=== PATIENT | female | born 1955 | race Caucasian/White ===

== ENCOUNTER 2017-12-17 12:28 | Outpatient (CLI) | payer BC, SELFPAY ==
--- NOTE | 2017-12-17 12:23 | DI.RAD_ITS ---
SYMPTOM/DIAGNOSIS: LEFT KNEE PAIN, M25.562 LEFT KNEE: Three views. There is mild periarticular spurring in the medial and lateral femoral tibial joint spaces. The joint spaces are otherwise well maintained. The bones are intact and normally mineralized. The soft tissues are unremarkable. IMPRESSION: Mild degenerative changes of the left knee.
[2017-12-17 13:45] LABS: ALT 41 U/L (12-78); AST 25 U/L (15-37); Alkaline Phosphatase 111 U/L (46-116); Anion Gap 11.2 mmol/L (3-11); BUN 14 mg/dL (7-18); Bilirubin, Total 0.8 mg/dL (0.2-1.0); CO2 25.8 mmol/L (21.0-32.0); Calcium 10.1 mg/dL (8.5-10.1); Chloride 101 mmol/L (98-107); GGT 105 U/L (5-55); Glucose 80 mg/dL (70-100); Potassium 4.4 mmol/L (3.5-5.1); Sodium 138 mmol/L (136-145); Total Protein 7.2 g/dL (6.4-8.2)
== END 2017-12-17 12:48 ==
PROVIDERS: PCP Family Medicine; Visit Provider Family Medicine
DX: R74.0 Nonspecific elevation of levels of transaminase and lactic acid dehydrogenase [LDH] (principal); I10 Essential (primary) hypertension; M25.562 Pain in left knee; M17.12 Unilateral primary osteoarthritis, left knee
CPT/HCPCS: 36415; 73562; 80053; 82977

== ENCOUNTER 2017-12-25 00:52 | Outpatient (CLI) | payer BC, SELFPAY ==
--- NOTE | 2017-12-25 12:30 | DI.MAMMO_ITS ---
SYMPTOMS/DIAGNOSIS: SCREENING MAMMOGRAM: Mammograms were interpreted according to the usual protocol including computer analysis with CAD system, tomosynthesis and C view imaging. The breasts are of moderate density with fairly symmetrical distribution of fibroglandular tissue. There are well-circumscribed intrapulmonary nodules seen bilaterally, the largest in the right breast measuring about 11 mm in diameter. These appear stable in comparison with previous examinations including November 2016. Biopsy clip is noted in the upper outer quadrant of the left breast. No new mass or clumped microcalcification is seen on either side. CONCLUSION: No specific evidence of malignancy at this time. Routine screening examinations are suggested at yearly intervals in this age group according to the ACS/ACR guidelines. Category 1, breast density category B. MQSA ASSESSMENT OF FINDINGS: Negative. Category 1. Patient will receive a letter notifying them of these results. BI-RADS category B. There are scattered areas of fibroglandular density.
== END 2017-12-25 01:12 ==
PROVIDERS: PCP Family Medicine; Visit Provider Family Medicine
DX: Z12.31 Encounter for screening mammogram for malignant neoplasm of breast (principal)
CPT/HCPCS: 77063; 77067

== ENCOUNTER 2018-02-27 13:40 | Outpatient (CLI) | payer OTHER, SELFPAY ==
--- NOTE | 2018-02-27 13:00 | DI.RAD_ITS ---
SYMPTOM/DIAGNOSIS: M54.16, THORACIC AND LOW BACK PAIN, OSTEOPENIA DORSAL SPINE: Generalized osteoporosis is demonstrated. There are mild to moderate degenerative changes involving the dorsal spine with no evidence of gross disc space narrowing. Note is made of what appears to represent an old superior endplate compression fracture of T 12. The vertebral bodies and posterior elements are intact. The paravertebral soft tissues are unremarkable. Note is made of ectasia of the thoracic aorta. There is some deviation of the trachea to the right side. The possibility of an aneurysm could not be excluded and further assessment with chest CT is suggested. In addition there is a very large, ovoid calcification partially visualized in the right upper quadrant consistent with cholelithiasis. IMPRESSION: Old compression fracture of T 12. Mild to moderate degenerative changes involving the dorsal spine. Question status of the aorta regarding the possibility of an aneurysm. Further evaluation with CT is suggested. LUMBOSACRAL SPINE: Generalized osteoporosis is demonstrated. There is an apparent old superior endplate compression fracture of T 12. The vertebral bodies are otherwise intact. Disc narrowing is identified at L 2-3 and is also noted at T 10-11 and T 11-12 where bony hypertrophic changes are also evident. There is a minimal anterior listhesis of L 4 and L 5 and there are moderately severe facet joint degenerative changes without evidence of spondylosis or spondylolisthesis. The pedicle, spinous and transverse processes are intact. The sacrum and sacroiliac joints are unremarkable. SUMMARY: Old compression fracture of T 12. Degenerative changes throughout the lumbosacral spine as described above. In addition to the above, a large layered, ovoid calcification in the right upper quadrant would be consistent with a gallstone which could measure up to 4+ cm. in maximal diameter.
== END 2018-02-27 14:00 ==
PROVIDERS: PCP Family Medicine; Visit Provider Family Medicine
DX: M54.5 Low back pain (principal); M54.6 Pain in thoracic spine; M47.815 Spondylosis without myelopathy or radiculopathy, thoracolumbar region; M81.0 Age-related osteoporosis without current pathological fracture; M48.54XD Collapsed vertebra, not elsewhere classified, thoracic region, subsequent encounter for fracture with routine healing
CPT/HCPCS: 72072; 72110

== ENCOUNTER 2018-03-06 05:21 | Outpatient (CLI) | payer OTHER, SELFPAY ==
--- NOTE | 2018-03-06 12:52 | DI.US_ITS ---
SYMPTOMS/DIAGNOSIS: CHOLELITHIASIS WITHOUT OBSTRUCTION, K80.20, AAA, I71.4, ENLARGED AORTA, I77.89, ? AAA AND GALLSTONE ABDOMINAL ULTRASOUND: The visualized liver parenchyma is normal in appearance. There is cholelithiasis with multiple large gallstones. No gallbladder wall thickening or pericholecystic fluid collection seen. There is no evidence of a renal mass or hydronephrosis. Both kidneys contain tiny echogenic foci, which could represent nonobstructing renal calculi. The pancreas is unremarkable in appearance as visualized. Tail is not well seen. Abdominal aorta is of normal diameter, as is the IVC. CONCLUSION: Cholelithiasis. Question bilateral tiny nonobstructing renal calculi.
== END 2018-03-06 05:41 ==
PROVIDERS: PCP Family Medicine; Visit Provider Family Medicine
DX: K80.20 Calculus of gallbladder without cholecystitis without obstruction (principal); I71.4 Abdominal aortic aneurysm, without rupture; I77.89 Other specified disorders of arteries and arterioles
CPT/HCPCS: 76700

== ENCOUNTER 2018-12-26 03:19 | Outpatient (CLI) | payer OTHER, SELFPAY ==
[2018-12-26 12:30] LABS: ALT 43 U/L (14-59); AST 19 U/L (15-37); Alkaline Phosphatase 109 U/L (46-116); Anion Gap 8.8 mmol/L (3-11); BUN 12 mg/dL (7-18); Bilirubin, Total 0.7 mg/dL (0.2-1.0); CO2 27.2 mmol/L (21.0-32.0); Calculated LDL 133 mg/dL; Chloride 104 mmol/L (98-107); Cholesterol 214 mg/dL (<200); GGT 101 U/L (5-55); Glucose 89 mg/dL (74-106); HDL Cholesterol 63 mg/dL (40-60); Potassium 4.6 mmol/L (3.5-5.1); Sodium 140 mmol/L (136-145); Total Protein 7.3 g/dL (6.4-8.2); Triglyceride 90 mg/dL (<150)
== END 2018-12-26 03:39 ==
PROVIDERS: PCP Family Medicine; Visit Provider Family Medicine
DX: Z00.00 Encounter for general adult medical examination without abnormal findings (principal); I10 Essential (primary) hypertension
CPT/HCPCS: 36415; 80053; 80061; 82977

== ENCOUNTER 2019-07-24 02:58 | Outpatient (CLI) | payer OTHER, SELFPAY ==
--- NOTE | 2019-07-24 10:15 | DI.MAMMO_ITS ---
EXAM: MAMMO SCREENING CLINICAL HISTORY: screening, Z12.39 TECHNIQUE: Mammograms were interpreted according to the usual protocol including computer analysis w [employer] CAD system, tomosynthesis and C-view imaging. COMPARISON: 2009 through 2017 FINDINGS: The breasts are composed of mainly fatty density , Breast Density category A. No suspicious masses or suspicious microcalcifications are seen. A biopsy marker clip is again noted in a small nodule in the upper outer quadrant of the left breast. There are stable nodules in both breasts. No skin thickening or abnormal axillary lymph nodes are seen. There has been no significant change from prior exams. IMPRESSION: BI-RADS Category 1, negative. Yearly screening mammography is recommended. Breast Density - Category A - Almost entirely fatty
== END 2019-07-24 03:18 ==
PROVIDERS: PCP Family Medicine; Visit Provider Family Medicine
DX: Z12.31 Encounter for screening mammogram for malignant neoplasm of breast (principal)
CPT/HCPCS: 77063; 77067

== ENCOUNTER 2020-03-18 01:35 | Outpatient (CLI) | payer OTHER, SELFPAY ==
--- NOTE | 2020-03-18 07:45 | DI.DEXA_ITS ---
EXAM: XR DEXA BONE DENSITY W/WO SENDY CLINICAL HISTORY: osteoporosis,m81.0,m85.80,osteopenia TECHNIQUE: HoloIntellikine Horizon C densitometer. Analysis of the spine, left hip and right forearm. COMPARISON: Comparison with 2004 and 2007 FINDINGS: The lateral view of the thoracic and lumbar spine shows a mild T12 compression fracture. This is see n on lumbar spine plain films of 27 February 2018. Appears unchanged. No additional compression frac tures are visible. The bone mineral density measurements of the lumbar spine correspond to a total T-score of -2.6, in t he osteoporotic range. This represents a 16.4 percent decrease when compared with 2007 and a 21.6 pe rcent decrease when compared with 2004. The bone mineral density measurements of the left hip correspond to a total T-score of -2.7 and a fem oral neck T-score of -2.4, in the osteoporotic range. The total bone mineral density is decreased 18 .7 percent when compared with 2007 and 24.0 percent when compared with 2004. The right forearm was not analyzed on the previous exams. The bone mineral density measurements of t he right forearm correspond to a total T-score of -2.3 and T-score of the distal 3rd of -2.7, consist ent with osteoporosis. IMPRESSION: Osteoporosis of the lumbar spine, left hip and right forearm. There has been significant decrease in bone density when compared with 2004 and 2007.
== END 2020-03-18 01:36 ==
LOC: DI 01:36
PROVIDERS: PCP Family Medicine; Visit Provider Family Medicine
DX: M81.0 Age-related osteoporosis without current pathological fracture (principal); M85.88 Other specified disorders of bone density and structure, other site
CPT/HCPCS: 77080

== ENCOUNTER 2020-03-18 02:52 | Outpatient (CLI) | payer OTHER, SELFPAY ==
[2020-03-18 13:52] LABS: ALT 42 U/L (14-59); AST 25 U/L (15-37); Albumin 4.1 g/dL (3.4-5.0); Alkaline Phosphatase 124 U/L (46-116); Anion Gap 9.2 mmol/L (3-11); BUN 12 mg/dL (7-18); Bilirubin, Total 0.8 mg/dL (0.2-1.0); CO2 26.8 mmol/L (21.0-32.0); CREATININE 0.7 mg/dL (0.55-1.02); Calcium 10.3 mg/dL (8.5-10.1); Calculated LDL 143 mg/dL (<100); Chloride 103 mmol/L (98-107); Cholesterol 233 mg/dL (<200); GGT 110 U/L (5-55); Glucose 91 mg/dL (74-106); HDL Cholesterol 75 mg/dL (40-60); Potassium 4.3 mmol/L (3.5-5.1); Sodium 139 mmol/L (136-145); Total Protein 7.5 g/dL (6.4-8.2); Triglyceride 78 mg/dL (<150)
[2020-03-18 14:14] LABS: Vitamin D 25 Total 51.6 ng/ml (30-100)
== END 2020-03-18 02:53 | disposition home or self-care (01) ==
LOC: LBO 02:52
PROVIDERS: PCP Family Medicine; Visit Provider Family Medicine
DX: I10 Essential (primary) hypertension (principal); K76.0 Fatty (change of) liver, not elsewhere classified; R74.01 Elevation of levels of liver transaminase levels; M81.0 Age-related osteoporosis without current pathological fracture
CPT/HCPCS: 36415; 80053; 80061; 82306; 82977

== ENCOUNTER 2020-07-22 15:23 | Emergency (ER) | payer OTHER, SELFPAY ==
[2020-07-22 15:24] VITALS: BP 126/81; PULSE 86; RESP 18; TEMP 36.4; O2SAT 100
--- NOTE | 2020-07-22 15:29 | W.ED.GENAD ---
Discharge Plan Disposition Patient Disposition: HOME Condition: Good Discharge Details Clinical Impression: Ankle strain, Contusion of left elbow, initial encounter Primary Care Provider: Roxana Mark ED Provider: Eric Bejarano Home Meds and New Rx's Prescriptions: Continued melatonin 3 mg tablet 3 mg PO HS PRNRF: 0 Gaviscon 1 EACH tablet,chewable 1 ea PO PRN RF: 0 Alive 50+ 1 tab PO DAILY RF: 0 loratadine 10 MG tablet 10 mg PO PRN PRNRF: 0 calcium carbonate-vitamin D3 [Caltrate with Vitamin D3] 1 EACH tablet 1 ea PO DAILY RF: 0 lisinopril 10 mg tablet 10 mg PO DAILY Qty: 90 RF: 4 ibuprofen 400 MG tablet 400 mg PO Q6H PRN PRNRF: 0 Discharge Instructions Instructions: Ankle Sprain (ED), Contusion in Adults (ED) Additional Instructions: X-ray of elbow and ankle read by radiology is unremarkable. Wear walking boot and use sling as needed, advance activity as tolerated. Be sure to do passive range of motion of your left shoulder at least 4 times a day to avoid a frozen shoulder. Rest, elevate, cool compresses every 2 hours for 20 minutes. Please watch for new or worsening symptoms and return to the ER for any concerns. Take eciz-gqs-[id number] Tylenol and/or Motrin as directed and as needed for pain. I am giving you the name and number of our local orthopedic team, I recommend contacting them next week if you are not doing much better with conservative therapy. Referrals: Sterling Breen MD [ [facility] STAFF PHYSICIAN] - Discharge Data Discharge Date/Time-TO BE ENTERED AT DEPARTURE: 07/22/20 17:44 Medical Decision Making <MAURISIO Potts - Last Filed: 07/23/20 08:58> Patient with no significant visible evidence of trauma, tenderness to right ankle and left elbow, pending x-rays at this time to Eric Bejarano PA-C at 1600 pending disposition <MAURISIO Perez - Last Filed: 07/22/20 18:36> I assumed care of this 65-year-old female from my colleague MAURISIO Degroot, please see her initial HPI and examination. At time of signout awaiting left elbow and right ankle x-ray. Discussed x-ray findings, negative, with patient. Discussed options for treatment. Patient would like a sling for her left elbow, sling applied. Patient would like a tall boot for her right ankle as she is not able to use crutches or a walker with her elbow injury. Tall boot was applied. Neuro, vascular, tendon intact. Patient was ambulatory, slowly but steadily. We discussed the importance of passive range of motion of her left shoulder to avoid a frozen shoulder. Conservative therapy of resting, elevating, cool compresses, moty-gxu-apglflz Tylenol and/or Motrin. Advancing activity as tolerated. I will give her the name and number of our local orthopedic team so that she is not improving with conservative therapy she can follow-up appropriately. Patient has no questions or concerns upon discharge. Imaging Data Radiologic Study: Attestation: I personally reviewed and interpreted this imaging study as follows: Imaging: X-Ray Radiologist's impression: [facility] Preliminary Radiology Report Call: [phone] assistance Online chat: [email or web address] Patient Name: TRACEY CLAYTON Institution Name: [place] [address] Study Type: XR ANKLE COMPLETE MIN 3 VIEWS Ordered As: XR RIGHT ANKLE COMPLETE Date of Dictation: 22 Jul 2020 EDT Date of Exam: 22 Jul 2020 EDT Account Number: Patient : 1955 Patient Location: er It Technical Architect: Referring Physician: Zulma DEGROOT This interpretation is based upon the receipt of 3 images. MARKETING INTELLIGENCE ANALYST (QA) DISCREPANCY? If there is a discrepancy between the preliminary and final interpretation, please notify [employer] via [email or web address]. If you do not have access to our QA portal, call our QA team at [phone] CONFIDENTIALITY STATEMENT This report is intended only for the use of the referring physician, and only in accordance with law, If you received this in error, call [phone] Page 1 of 1 PROCEDURE INFORMATION: Exam: XR Right Ankle Exam date and time: 07/22/2020 3:38 PM Age: 65 years old Clinical indication: Pain; Ankle; Right TECHNIQUE: Imaging protocol: XR Right ankle. Views: 3 or more views. COMPARISON: No relevant prior studies available. FINDINGS: Bones/joints: There is no evidence of acute fracture. There is no evidence of joint malalignment or dislocation. Soft tissues: There are no soft tissue masses or fluid collections. IMPRESSION: 1. No evidence of acute fracture. 2. No evidence of acute dislocation. Thank you for allowing us to participate in the care of your patient. Dictated and Authenticated by: Lul Gonzalez DO 07/22/2020 4:19 PM Eastern Time ([place] & [place]) Radiologic Study #2: Attestation: I personally reviewed and interpreted this imaging study as follows: Imaging: X-Ray Radiologist's impression: [facility] Preliminary Radiology Report Call: [phone] assistance Online chat: [email or web address] Patient Name: TRACEY CLAYTON Institution Name: [place] [address] Study Type: XR ELBOW COMPLETE MIN OF 3 VIEWS Ordered As: XR LEFT ELBOW COMPLETE Date of Dictation: 22 Jul 2020 EDT Date of Exam: 22 Jul 2020 EDT Account Number: Patient : 1955 Patient Location: er It Technical Architect: Referring Physician: Zulma DEGROOT This interpretation is based upon the receipt of 3 images. MARKETING INTELLIGENCE ANALYST (QA) DISCREPANCY? If there is a discrepancy between the preliminary and final interpretation, please notify [employer] via [email or web address]. If you do not have access to our QA portal, call our QA team at [phone] CONFIDENTIALITY STATEMENT This report is intended only for the use of the referring physician, and only in accordance with law, If you received this in error, call [phone] Page 1 of 1 PROCEDURE INFORMATION: Exam: XR Left Elbow Exam date and time: 07/22/2020 3:38 PM Age: 65 years old Clinical indication: Pain; Elbow; Left TECHNIQUE: Imaging protocol: XR Left elbow. Views: 3 or more views. COMPARISON: No relevant prior studies available. FINDINGS: Bones/joints: There is no evidence of acute fracture. There is no evidence of joint malalignment or dislocation. Joint effusion is present. Soft tissues: There are no soft tissue masses or fluid collections. IMPRESSION: 1. No evidence of acute fracture. 2. No evidence of acute dislocation. 3. Joint effusion is present. Thank you for allowing us to participate in the care of your patient. Dictated and Authenticated by: Lul Gonzalez DO 07/22/2020 4:19 PM Eastern Time ([place] & [place]) HPI <AMURISIO Potts - Last Filed: 07/23/20 08:58> General Mode of arrival: ambulatory. Date/Time Provider Initiated Documentation: 07/22/20 15:25. Limitations to Documentation: no limitations. Information obtained by: patient. HPI Narrative: This 59-year-old female presents with reports of right ankle pain and left elbow pain status post fall. Patient reportedly stepped into a definite twisted her right ankle landing on her left side. The fall of her ankle in nature. She denies any additional injuries. She denies any anticoagulation history. She denies any head injury, chest pain, shortness of breath, abdominal pain. She denies any dizziness or weakness. Related Data Home Medications Medication Instructions Recorded Confirmed Gaviscon 1 ea PO PRN tab.chew 11/27/12 07/22/20 Alive 50+ 1 tab PO DAILY 06/27/16 07/22/20 ibuprofen 400 mg PO Q6H PRN PRN tab 10/14/16 07/22/20 loratadine 10 mg PO PRN PRN 10/19/16 07/22/20 calcium carbonate-vitamin D3 1 ea PO DAILY 11/27/16 07/22/20 [Caltrate with Vitamin D3] melatonin 3 mg tablet 3 mg PO HS PRN 12/23/19 07/22/20 lisinopril 10 mg tablet 10 mg PO DAILY #90 tab 03/12/20 07/22/20 Previous Rx's Medication Instructions Recorded ibuprofen 400 mg PO Q6H PRN PRN tab 10/14/16 lisinopril 10 mg tablet 10 mg PO DAILY #90 tab 03/12/20 Allergies Allergy/AdvReac Type Severity Reaction Status Date / Time No Known Allergies Allergy Unverified 04/22/20 11:37 Review of Systems <MAURISIO Potts - Last Filed: 07/23/20 08:58> Narrative: Review of systems obtained x7 aside from where indicated in HPI PFSH <MAURISIO Potts - Last Filed: 07/23/20 08:58> Medical History (Updated 07/22/20 @ 16:05 by MAURISIO Potts) Cholelithiasis without obstruction Compression fracture of body of thoracic vertebra (10/13/16) Elev transaminase/LDH R lobe hemangioma on US; neg Hep series; elevated GGT; high alcohol intake Esophageal reflux Essential hypertension Essential hypertension Fatty liver Fatty liver declines F/U Gastroesophageal reflux disease with esophagitis GERD (gastroesophageal reflux disease) Osteopenia Dexa w/T-scores -1.6; -1.2; -0.7 Polyp of colon (01/04/06) tubulovillious adenoma at 15cm; declined local MI, declined [facility] [place] [place] both in 2008,2009 Polyp of colon, adenomatous Rosacea Seasonal allergies (06/23/14) Surgical History (Updated 03/07/17 @ 10:06 by Gemma Sommers) Colonoscopy - IV Sedation 2009 Colonoscopy - MAC (03/06/17) Fracture, Open Treatment (~01/2004) [facility]; LEFT WRIST Hysterectomy, Laproscopic (~1998) FIBROIDS Family History (Updated 12/24/19 @ 12:39 by Jeronimo Pichardo) Mother , AGE 70 Essential hypertension Ovarian cancer Father Essential hypertension Sister Essential hypertension Ulcerative colitis Sister Multiple sclerosis Sister Essential hypertension Brother No problems noted. Brother No problems noted. Maternal Grandfather , AGE 80 Pancreatic cancer Alcohol abuse Paternal Grandfather , AGE 83 Depression Paternal Grandmother , AGE 90 Lung disease Maternal Grandmother , age 80+ Heart disease CHF (congestive heart failure) Essential hypertension Other Heart attack Social History (Updated 12/24/19 @ 12:36 by Jeronimo Pichardo) Smoking/Tobacco Use Status: Never Second Hand Exposure: Yes Smoking risk assessment performed?: Yes Alcohol Intake: current Alcohol Intake frequency: 3 or more drinks per day Alcohol type: wine Drug use: Never Substance use type: does not use Caregiver/Support person: No Household members: spouse Housing: house Communication Needs: None Do you need help understanding health information?: Never Pets and animals: Yes Pets and animals: cat(s) Sexually active: No Do you think of yourself as: straight/heterosexual Current gender identity: female What is your relationship status?: How often do you talk on the phone with friends or family?: twice per week How often do you get together with friends or relatives?: never How often do you attend scientology or hinduism services?: decline to answer Do you belong to any clubs or organized social groups?: no Panel score (0-1 are the most socially isolated patients): 1 What type of physical activity do you participate in: none and normal ROM and activity Duration: 45-60 minutes/day Frequency: 3-4 times per week Merly/Zoroastrian: Evangelical Special merly needs: No Seatbelt use: always Drive intox or ride w/intox full service vending driver: No Do you feel safe at home: Yes Do you feel safe in your relationship?: Yes Victim of physical abuse: No Victim of emotional abuse: No Victim of sexual abuse: No Would you like helpful sources: No Exam <MAURISIO Potts - Last Filed: 07/23/20 08:58> Const General: cooperative and no acute distress HENMT Head: normal to inspection Eyes Pupils: PERRL Neck Other: No midline tenderness Cardio Rate: regular rate Rhythm: regular rhythm GI Other: No abdominal tenderness or visible evidence of trauma Back/Spine/Pelvis Other: No midline tenderness Neuro Other: GCS 15, strength and sensation intact distally Extrem Other: Right lateral ankle tenderness, no medial tenderness, no tenderness to right knee or right foot, no tenderness to right hip Tenderness with palpation over left elbow, mild tenderness to left knee but complete range of motion without tenderness, no hip tenderness bilaterally Neurovascularly intact Sign Out <MAURISIO Potts - Last Filed: 07/23/20 08:58> Sign Out Data: Sign Out Comment: pending xray results interpretation and ambulatory trial Last updated by Zulma Degroot PA at 07/22/20 16:13
--- NOTE | 2020-07-22 15:30 | DI.RAD_ITS ---
Exam(s) XR ANKLE RT COMPLETE EXAM: XR ANKLE RT COMPLETE CLINICAL HISTORY: right ankle pain. TECHNIQUE: 2D digital imaging was performed. COMPARISON: No exams were available for comparison FINDINGS: BONES: No acute fracture is present. No bony destructive lesion is seen. JOINTS: The ankle mortise is normally aligned. SOFT TISSUE: Normal. IMPRESSION: Unremarkable radiographs of the right ankle. DATA REPOSITORY: RADIATION DOSE DELIVERED:
--- NOTE | 2020-07-22 15:30 | DI.RAD_ITS ---
Exam(s) XR ELBOW LT COMPLETE EXAM: XR ELBOW LT COMPLETE CLINICAL HISTORY: left elbow. TECHNIQUE: 2D digital imaging was performed. COMPARISON: No exams were available for comparison FINDINGS: BONES: No acute fracture is present. No bony destructive lesion is seen. JOINTS: The elbow is normally aligned. There is a large joint effusion. SOFT TISSUE: Normal. IMPRESSION: 1. No acute fracture or dislocation. 2. Large joint effusion. 3. Follow-up examination may be obtained for re-evaluation. DATA REPOSITORY: RADIATION DOSE DELIVERED:
[2020-07-22] MEDS: Acetaminophen 325 MG TAB (16:00)
--- NOTE | 2020-07-22 16:19 | DI.VRAD_ITS ---
PROCEDURE INFORMATION: Exam: XR Left Elbow Exam date and time: 07/22/2020 3:38 PM Age: 65 years old Clinical indication: Pain; Elbow; Left TECHNIQUE: Imaging protocol: XR Left elbow. Views: 3 or more views. COMPARISON: No relevant prior studies available. FINDINGS: Bones/joints: There is no evidence of acute fracture. There is no evidence of joint malalignment or dislocation. Joint effusion is present. Soft tissues: There are no soft tissue masses or fluid collections. IMPRESSION: 1. No evidence of acute fracture. 2. No evidence of acute dislocation. 3. Joint effusion is present. Dictated and Authenticated by: Lul Gonzalez MD. Ordering:DAVIDSON Maya MD
--- NOTE | 2020-07-22 16:20 | DI.VRAD_ITS ---
PROCEDURE INFORMATION: Exam: XR Right Ankle Exam date and time: 07/22/2020 3:38 PM Age: 65 years old Clinical indication: Pain; Ankle; Right TECHNIQUE: Imaging protocol: XR Right ankle. Views: 3 or more views. COMPARISON: No relevant prior studies available. FINDINGS: Bones/joints: There is no evidence of acute fracture. There is no evidence of joint malalignment or dislocation. Soft tissues: There are no soft tissue masses or fluid collections. IMPRESSION: 1. No evidence of acute fracture. 2. No evidence of acute dislocation. Dictated and Authenticated by: Lul Gonzalez MD. Ordering:DAVIDSON Maya MD
[2020-07-22 16:59] VITALS: BP 136/90; PULSE 91; RESP 18; TEMP 36.6; O2SAT 97
== END 2020-07-22 17:44 | disposition home or self-care (01) ==
LOC: ER 17:20
PROVIDERS: Emergency Provider Physician Assistant; PCP Family Medicine
DX: S96.811A Strain of other specified muscles and tendons at ankle and foot level, right foot, initial encounter (principal); S50.02XA Contusion of left elbow, initial encounter; W18.39XA Other fall on same level, initial encounter
CPT/HCPCS: 29515; 99284; 73080; 73610; 99283

== ENCOUNTER 2021-02-21 00:36 | Outpatient (CLI) | payer MEDICARE, SELFPAY ==
--- NOTE | 2021-02-21 06:45 | DI.MAMMO_ITS ---
Exam(s) MAMMO SCREENING EXAM: MAMMO SCREENING CLINICAL HISTORY: screening,z12.39 TECHNIQUE: Mammograms were interpreted according to the usual protocol including computer analysis w [employer] CAD system, tomosynthesis and C-view imaging. COMPARISON: 2011 through 2019 FINDINGS: The breasts are composed of mainly fatty density , Breast Density category A. No suspicious masses or suspicious microcalcifications are seen. Stable bilateral nodules. Biopsy m arker clip upper-outer quadrant left breast. No skin thickening or abnormal axillary lymph nodes are seen. There has been no significant change from prior exams. IMPRESSION: BI-RADS Category 2 - Benign findings. Yearly screening mammography is recommended. Breast Density - Category A, fatty density. A negative radiographic report should not delay biopsy if a dominant or clinically suspicious mass is present. Up to ten percent of cancers are not identified on mammography. A negative report may reinforce clinical impression. Adenosis and dense breasts may obscure an underlying neoplasm. False positive reports average 6 to 10%. Patient will receive a letter notifying them of these results.
== END 2021-02-21 00:56 ==
PROVIDERS: PCP Family Medicine; Visit Provider Family Medicine
DX: Z12.31 Encounter for screening mammogram for malignant neoplasm of breast (principal)
CPT/HCPCS: 77063; 77067

== ENCOUNTER 2021-07-21 03:49 | Outpatient (CLI) | payer MEDICARE, SELFPAY ==
[2021-07-21 15:22] LABS: ALT 32 U/L (14-59); AST 20 U/L (15-37); Albumin 3.9 g/dL (3.4-5.0); Alkaline Phosphatase 105 U/L (46-116); Anion Gap 8.7 mmol/L (3-11); BUN 10 mg/dL (7-18); Bilirubin, Total 0.6 mg/dL (0.2-1.0); CO2 26.3 mmol/L (21.0-32.0); CREATININE 0.7 mg/dL (0.55-1.02); Calcium 9.8 mg/dL (8.5-10.1); Chloride 105 mmol/L (98-107); Glucose 91 mg/dL (74-106); Potassium 3.7 mmol/L (3.5-5.1); Sodium 140 mmol/L (136-145); Total Protein 7.7 g/dL (6.4-8.2)
== END 2021-07-21 03:50 | disposition home or self-care (01) ==
LOC: LBO 03:49
PROVIDERS: PCP Family Medicine; Visit Provider Family Medicine
DX: I10 Essential (primary) hypertension (principal)
CPT/HCPCS: 36415; 80053

== ENCOUNTER 2022-05-29 11:00 | Outpatient (CLI) | payer MEDICARE, SELFPAY ==
[2022-05-29 12:21] LABS: HCT 41.7 % (36.0-46.0); MCH 31.2 pg (27.0-33.0); MCHC 33.6 % (32.0-36.0); MCV 93 fL (80-95); MPV 9.6 fL (8.0-11.0); Platelet Count 342 10^3/uL (130-400); RBC 4.49 10^6/uL (3.93-5.22); RDW 11.8 % (11.7-14.6); RDW-SD 40.4 fL
[2022-05-29 13:02] LABS: ALT 41 U/L (14-59); AST 26 U/L (15-37); Albumin 3.9 g/dL (3.4-5.0); Alkaline Phosphatase 109 U/L (46-116); Anion Gap 5.3 mmol/L (3-11); BUN 14 mg/dL (7-18); Bilirubin, Total 0.5 mg/dL (0.2-1.0); CO2 27.7 mmol/L (21.0-32.0); CREATININE 0.8 mg/dL (0.55-1.02); Calcium 10.2 mg/dL (8.5-10.1); Chloride 103 mmol/L (98-107); Estimated GFR 80.21 (mL/min/1.73m2); GGT 81 U/L (5-55); Glucose 103 mg/dL (74-106); Potassium 3.9 mmol/L (3.5-5.1); Sodium 136 mmol/L (136-145); Total Protein 7.5 g/dL (6.4-8.2)
== END 2022-05-29 11:01 | disposition home or self-care (01) ==
LOC: LOS 11:00
PROVIDERS: PCP Family Medicine; Referring Provider Family Medicine; Visit Provider Family Medicine
DX: I10 Essential (primary) hypertension (principal); K57.90 Diverticulosis of intestine, part unspecified, without perforation or abscess without bleeding; F10.11 Alcohol abuse, in remission
CPT/HCPCS: 36415; 80053; 85027; 82977

== ENCOUNTER 2023-06-21 14:44 | Outpatient (CLI) | payer MEDICARE, SELFPAY ==
[2023-06-21 16:11] LABS: ALT 49 U/L (14-59); AST 25 U/L (15-37); Albumin 4.1 g/dL (3.4-5.0); Alkaline Phosphatase 109 U/L (46-116); Anion Gap 11.4 mmol/L (3-11); BUN 13 mg/dL (7-18); Bilirubin, Total 0.7 mg/dL (0.2-1.0); CO2 27.6 mmol/L (21.0-32.0); CREATININE 0.8 mg/dL (0.55-1.02); Calculated LDL 134 mg/dL (<100); Chloride 102 mmol/L (98-107); Cholesterol 235 mg/dL (<200); Estimated GFR 79.71 (mL/min/1.73m2); Glucose 86 mg/dL (74-106); HDL Cholesterol 74 mg/dL (40-60); Potassium 3.7 mmol/L (3.5-5.1); Sodium 141 mmol/L (136-145); Total Protein 7.8 g/dL (6.4-8.2); Triglyceride 136 mg/dL (<150)
== END 2023-06-21 14:45 | disposition home or self-care (01) ==
LOC: LBO 14:44
PROVIDERS: PCP Family Medicine; Visit Provider Family Medicine
DX: I10 Essential (primary) hypertension (principal)
CPT/HCPCS: 36415; 80053; 80061

== ENCOUNTER → 2023-06-27 04:01 | Outpatient (CLI) | payer MEDICARE, SELFPAY ==
--- NOTE | 2023-06-27 07:15 | DI.MAMMO_ITS ---
Exam(s) MAMMO SCREENING EXAM: MAMMO SCREENING CLINICAL HISTORY: screening,z12.39. TECHNIQUE: Bilateral full field digital CC and MLO mammographic images were obtained with 3D tomosyn thesis and utilizing computer aided detection (CAD). COMPARISON: Prior mammograms were reviewed. FINDINGS: There has been no significant change in the appearance and distribution of the fibroglandular tissue. There are no new findings in the immediate vicinity of the biopsy marker clip in the lateral aspect o f the left breast. There is stable benign-appearing bilateral well-defined nodules again noted. There are no new spiculated masses nor malignant appearing microcalcification groups. There is no significant architectural distortion nor skin thickening-retraction. IMPRESSION: Stable benign-appearing findings. No radiographic evidence of malignancy. BI-RADS Category 2 - Benign Findings Breast Density - Category A - Almost entirely fatty Breast density Category C or D implies that the patient has dense breast tissue. Dense breast tissue can make it harder to find cancer on a mammogram. Dense breast tissue is also associated with an incr eased risk of breast cancer. This information about the result of the mammogram report was provided to the patient to raise their awareness. Use this report when you speak with the patient about their risks for breast cancer, which includes their family history. At that time, you may recommend additional screening tests (Ultrasoun d or MRI) as these tests may add significant information. A negative radiographic report should not delay biopsy if a dominant or clinically suspicious mass is present. Up to ten percent of cancers are not identified on mammography. A negative report may reinforce clinical impression. Adenosis and dense breasts may obscure an underlying neoplasm. False positive reports average 6 to 10%. Patient will receive a letter notifying them of these results.
== END ==
PROVIDERS: PCP Family Medicine; Visit Provider Family Medicine
DX: Z12.31 Encounter for screening mammogram for malignant neoplasm of breast (principal)
CPT/HCPCS: 77063; 77067

== ENCOUNTER 2023-11-03 15:29 | Emergency (ER) | payer MEDICARE, SELFPAY ==
[2023-11-03 15:30] VITALS: BP 121/74; PULSE 80; RESP 18; TEMP 36.5; O2SAT 100
--- NOTE | 2023-11-03 15:30 | DI.RAD_ITS ---
Exam(s) XR ELBOW LT COMPLETE EXAM: XR ELBOW LT COMPLETE CLINICAL HISTORY: suspect dislocation vs fx. TECHNIQUE: 2D digital imaging was performed of the left elbow. Three images were obtained. AP, lat eral and oblique views were obtained. COMPARISON: CR,XR XR ELBOW LT COMPLETE from 07/22/2020 FINDINGS: BONES: There is an acute fracture through the proximal metaphysis of the left ulna. There is mild di splacement of the fracture noted. No bony destructive lesion is seen. JOINTS: The elbow is normally aligned. No joint effusion is seen. SOFT TISSUE: There is soft tissue swelling of the dorsum of the elbow. IMPRESSION: Mildly displaced fracture involving the proximal metaphysis of the left ulna with mild displacement a nd associated soft tissue swelling. DATA REPOSITORY: RADIATION DOSE DELIVERED:
--- OUTSIDE RECORDS SUMMARY | 2023-11-03 15:36 | XMS_ITS | Encounter Summary ---
Author Organization [facility] Address [facility] [place] [address] Care Team Providers Care Labor Relations Officer Name Role Phone Roxana Mark MD Primary Care Provider [phone] Encounter Details Date Type Department Care Team (Late st Contact Info) Description 09/20/2007 Orders [place] [address] Jeremias Aguirre MD [facility] [place] [address] Social History Tobacco Use Types Packs/Day Years Used Date Smoking Tobacco: Never Assessed Sex and Gender Information Value Date Recorded Sex Assigned at Not on file Gender Identity Not on file Sexual Orientation Not on file documented as of this encounter Plan of Treatment Not on file documented as of this encounter Procedures Procedure Name Priority Date/Time Associated Diagnosis Comments SURGICAL PATHOLOGY REPORT Routine 09/20/2007 12:31 PM EDT documented in this encounter Results * Surgical Pathology Report (09/20/2007 12:31 PM EDT) Surgical Pathology Report [id number] ? Location: 4T The signing pathologist has (i) examined the relevant preparation(s) for the specimen(s) and (ii) rendered or confirmed the diagnosis(es). . ?Pathology Surgical Pathology Final Report Clinical Information Specimen Submitted: A - Liver biopsy right lobe liver Clinical History: Elevated LFTs ? lat THOMAS Clinical Diagnosis: Elevated LFTs Gross Description Labeled/Fixative : ? Liver biopsy right lobe liver, formalin. Qty/Size/Weight: ?Four ricketts-brown needle core biopsies, ranging from ?0.6 x 0.1 cm to 1.6 x 0.1 cm. Sections/Process ing: ??(T1) ??aje/PPS Microscopic Description Slides reviewed, microscopic description not recorded. Diagnosis Liver, needle biopsy without significant change. The lobular architecture is preserved. Mild steatosis is noted, without significant hepatocyte ballooning or lobular inflammation. Rare clusters of ceroid laden macrophages in lobule and portal tracts, may suggest a mild degree of residual hepatitis. Iron stain is negative for iron deposition. Trichrome stain confirms H&E stain findings. CR-0 09/23/07 AAS 09/23/07 Verified by: ? Liam Junior MD ?Pathologist ?(Electronic Signature) The attending pathologist whose signature appears on this report has reviewed all diagnostic slides and has edited the gross and/or microscopic portion of the report in rendering the final pathologic diagnosis. SUDHIR PASTOR 09/20/2007 12:3 1 PM EDT Jeremias Aguirre MD PATHOLOGY/CYTOLOGY O VERNON SUDHIR PASTOR documented in this encounter Visit Diagnoses Not on filedocumented in this encounter Care Teams Labor Relations Officer Relationship Specialty Start Date End Date Roxana Mark MD [address] [place] [address] PCP - General 12/28/09 documented as of this encounter
--- OUTSIDE RECORDS SUMMARY | 2023-11-03 15:36 | XMS_ITS | Encounter Summary ---
Author Organization [facility] Address [address] [place] [address] Care Team Providers Care Special Agent Name Role Phone Unavailable Primary Care Provider Unavailabl e Encounter Details Date Type Department Care Team (Late st Contact Info) Description 09/03/2006 Results Only [facility] [address] [place] [address] Rao hO MD [address] [place] [id number] Social History Tobacco Use Types Packs/Day Years Used Date Smoking Tobacco: Never Assessed Sex and Gender Information Value Date Recorded Sex Assigned at Not on file Gender Identity Not on file Sexual Orientation Not on file documented as of this encounter Plan of Treatment Not on file documented as of this encounter Procedures Procedure Name Priority Date/Time Associated Diagnosis Comments SURGICAL PATHOLOGY Routine 09/03/2006 0:00 EDT documented in this encounter Results * SURGICAL PATHOLOGY (09/03/2006 0:00 EDT) Pathology Report: SURGICAL PATHOLOGY REPORT Reports generated via electronic interface contain original data; however they are lacking the format of the original report. Caution should be taken when reading/interpreti ng unformatted reports. Name: ? CLAIRE CARPENTER ? Accession #: ? [id number] ? : ? 1955 (Age: 51) ??F ? Collect Date: ? 09/03/2006 ? Location: ? [facility] ? Receive Date: ? 09/03/2006 ? Provider: RAO OH MD Copy to: ZOHAIB BAIG MD ? Final Pathologic Diagnosis: A. ?Rectum, polypectomy: 1. ?Tubulovillous adenoma. 2. ? No evidence of high grade dysplasia. B. ?Rectum, polyp stalk, biopsy: 1. ?Fragments of tubulovillous adenoma. 2. ? Resection margins negative for adenomatous changes. Document reviewed and electronically signed by: CHEYENNE LOPEZ MD Report ??Date: 09/06/2006 17:14 By the signature above, the attending physician certifies that he/she has personally conducted a gross and/or microscopic examination of the described specimens and rendered or confirmed the above diagnosis. Specimen(s) Received: A. ?1 cm polyp (#1) B. ? Stalk of #1 (#2) Clinical History: ? Screening colonoscopy Gross Description: ? Received in Hollande's fixative labelled Jayden and bx rectum 15 cm is a ricketts-pink 1.5 x 1.1 x 0.7 cm polypoid soft tissue. The specimen is serially sectioned and entirely submitted as (A1) and (A2). Received in Hollande's fixative labelled Jayden and polyp rectal 15 cm stalk is a 1.0 x 0.5 x 0.5 cm soft tissue. The specimen is longitudinally bisected and entirely submitted as (B). (Jhony Fall)/[facility] End of Report [facility] 09/03/2006 09/03/2006 7:5 2 EDT Rao Oh MD PATHOLOGY ORDERABLE S Performing Organization Address City/State/[facility] Co de Phone Number [facility] [address] [place] [address] documented in this encounter Visit Diagnoses Not on filedocumented in this encounter
--- OUTSIDE RECORDS SUMMARY | 2023-11-03 15:36 | XMS_ITS | Clinical Summary ---
Author Organization [facility] Address [address] [place] [address] Care Team Providers Care Matzo Forming Machine Operator Name Role Phone Roxana Mark MD Primary Care Provider Social History Tobacco Use Types Packs/Day Years Used Date Smoking Tobacco: Never Assessed Sex and Gender Information Value Date Recorded Sex Assigned at Not on file Gender Identity Not on file Sexual Orientation Not on file Plan of Treatment Health Maintenance Due Date Last Done Comments Hepatitis C Screen 1955 RSV Immunization ( o r 60+ Years) (1 - 1-dose 60+ series) 2014 Fall Risk Screening 05/26/2019 COVID-19 Vaccine (2022-24 season) 2022 Care Teams Matzo Forming Machine Operator Relationship Specialty Start Date End Date Roxana Mark MD [address] [place] [phone] PCP - General 05/17/11
--- OUTSIDE RECORDS SUMMARY | 2023-11-03 15:36 | XMS_ITS | Referral Summary ---
Author Organization [facility] Address [address] [place] [address] Care Team Providers Care Cutter Machine Name Role Phone Roxana Mark MD Primary Care Provider [phone] Social History Tobacco Use Types Packs/Day Years Used Date Smoking Tobacco: Never Assessed Sex and Gender Information Value Date Recorded Sex Assigned at Not on file Gender Identity Not on file Sexual Orientation Not on file Plan of Treatment Not on file Care Teams Cutter Machine Relationship Specialty Start Date End Date Roxana Mark MD [address] [place] [address] [address] [place] [id number] PCP - General 05/17/11
--- OUTSIDE RECORDS SUMMARY | 2023-11-03 15:36 | XMS_ITS | Clinical Summary ---
Author Organization [facility] Address [facility] [place] [address] Care Team Providers Care Stone Product Fabricator Name Role Phone Roxana Mark MD Primary Care Provider [phone] Allergies No known active allergies Medications Medication Sig Dispensed Refills Start Date End Date Status multivitamin (THERAGRAN) tablet 09/20/2007 Active hydrochlorothiazide (HYDRODIURIL) 25 mg tablet 09/20/2007 Active ibuprofen (ADVIL) 200 mg tablet 09/20/2007 Active MG TRISILICATE/ALH/NAHCO3/AA (GAVISCON ORAL) 09/20/2007 Active MULTIVITS W-FE,OTHER MIN (CENTRUM ORAL) 09/20/2007 Active Social History Tobacco Use Types Packs/Day Years Used Date Smoking Tobacco: Never Assessed Sex and Gender Information Value Date Recorded Sex Assigned at Not on file Gender Identity Not on file Sexual Orientation Not on file Plan of Treatment Health Maintenance Due Date Last Done Comments CT Colonography 1955 Colonoscopy 1955 Colorectal Cancer Screening 1955 FIT DNA 1955 FIT 1955 Sigmoidoscopy (10 year) with FIT yearly 1955 Sigmoidoscopy 1955 Hepatitis C Screening 1972 Tetanus/Diphtheria/Pertussis Vaccines (1 - Tdap) 05/25 Breast Cancer Share Decision Needed 1994 Breast Cancer screening 1994 Zoster vaccine (1 of 2) 2004 Advance Directive 2009 Bone Density Scan 05/26/2019 Pneumoccocal Vaccine: 65+ (1 of 1 - PCV) 05/26/2019 Covid-19 Vaccine (1 - season) 2023 Influenza (Flu) vaccine (1 o f 1 - Influenza standard series) 10/07/2023 Care Teams Stone Product Fabricator Relationship Specialty Start Date End Date Roxana Mark MD [address] [place] [address] PCP - General 12/28/09
--- OUTSIDE RECORDS SUMMARY | 2023-11-03 15:36 | XMS_ITS | Encounter Summary ---
Author Organization [facility] Address [address] [place] [address] Care Team Providers Care Rock Picker Name Role Phone Unavailable Primary Care Provider Unavailabl e Encounter Details Date Type Department Care Team (Late st Contact Info) Description 05/15/2011 Results Only [facility] [address], [place] [id number] Reid Dejesus MD [address] [place], [place] [id number] Social History Tobacco Use Types Packs/Day Years Used Date Smoking Tobacco: Never Assessed Sex and Gender Information Value Date Recorded Sex Assigned at Not on file Gender Identity Not on file Sexual Orientation Not on file documented as of this encounter Plan of Treatment Not on file documented as of this encounter Procedures Procedure Name Priority Date/Time Associated Diagnosis Comments SURGICAL PATHOLOGY Routine 05/15/2011 0:00 EDT documented in this encounter Results * SURGICAL PATHOLOGY (05/15/2011 0:00 EDT) Pathology Report: SURGICAL PATHOLOGY REPORT Reports generated via electronic interface contain original data; however they are lacking the format of the original report. Caution should be taken when reading/interpreti ng unformatted reports. Name: ? CLAIRE CARPENTER ? Accession #: ? [id number] ? : ? 1955 (Age: 55) ??F ? Collect Date: ? 05/15/2011 ? Location: ? [facility] ? Receive Date: ? 05/15/2011 ? Provider: REID DEJESUS MD Copy to: ZOHAIB ABIG MD ? Final Pathologic Diagnosis: ? Colon, ascending, polyps, biopsies: - Colonic mucosa with prominent lymphoid aggregates. Document reviewed and electronically signed by: AMY NOVAK MD Report ??Date: 05/17/2011 14:13 By the signature above, the attending physician certifies that he/she has personally conducted a gross and/or microscopic examination of the described specimens and rendered or confirmed the above diagnosis. Specimen(s) Received: ? Ascending colon polyps x2 Clinical History: ? H/O colon adenoma Gross Description: ? Received in formalin labelled Claire Carpenter and #1 ascending colon polyps x2 are two light ricketts biopsies measuring 0.3 x 0.2 x 0.1 cm and 0.5 x 0.2 x 0.1 cm. ??The specimens are submitted intact in one cassette. ??(CASEY Minor)/aga End of Report [facility] CONTRERAS 05/15/2011 05/15/2011 16: 52 EDT Reid Dejesus MD PATHOLOGY ORDERABLES [facility] [address] [place] [address] documented in this encounter Visit Diagnoses Not on filedocumented in this encounter
--- NOTE | 2023-11-03 15:39 | W.ED.GENAD ---
Discharge Plan Disposition Patient Disposition: Home Condition: Good Discharge Details Clinical Impression: Fracture of left ulna Primary Care Provider: Roxana Mark ED Provider: Richard Joiner Home Meds and New Rx's Prescriptions: No Action cholecalciferol (vitamin D3) 25 mcg (1,000 unit) capsule 25 mcg PO DAILY melatonin 3 mg tablet 3 mg PO HS PRN loratadine 10 MG tablet 10 mg PO PRN PRN calcium carbonate-vitamin D3 [Caltrate with Vitamin D3] 1 EACH tablet 1 ea PO DAILY Gaviscon 80-14.2 mg tablet,chewable 1 tab PO DAILY PRN losartan 50 mg tablet 50 mg PO DAILY Qty: 90 4RF ibuprofen 400 MG tablet 400 mg PO Q6H PRN PRN0RF Discharge Instructions Instructions: Forearm Fracture (DC) Additional Instructions: At this time you have a fracture at your elbow. Unfortunately this will require surgical intervention. The computer technical support specialist Dr. Cordova's office will contact you tomorrow or Sunday to set up a surgical time. Please take Tylenol and Advil [id number] for pain control. You can take 1000 mg of Tylenol and 600 mg of Advil every 6 hours. Please continue to ice the area. Please take the narcotic pain pill only as needed for breakthrough pain. If you notice a change in color for your hand, decreased sensation, a cold hand, please return immediately for reassessment. If you notice any worsening of your symptoms, or any new symptoms such as vomiting, diarrhea, fever, chills, shortness of breath, chest pain, numbness, weakness, or fainting , please return immediately to the emergency department for reevaluation. Please follow up with your primary care provider as soon as possible for reassessment and reevaluation. As always, it was a pleasure participating in your medical care today. Referrals: Roxana Mark MD, [place] [Primary Care Provider] - Albert Cordova MD [ [facility] STAFF PHYSICIAN] - HPI General Date/Time Provider Initiated Documentation: 11/03/23 15:37. HPI Narrative: 68-year-old female with a past medical history of hypertension, previous transaminitis, previous left elbow dislocation, GERD, who is right-hand dominant, previous left wrist fracture with subsequent hardware placement, presents today for evaluation of left elbow pain. About an hour prior to arrival the patient was leaning on a folding chair when she slipped and her left elbow hit the ground. She had immediate pain and deformity. She contacted EMS and was brought to the ER for further assessment. She denies numbness, but does admit to mild tingling in the tips of her fingers. She denies any trauma to the head shoulder back or chest. No other complaints at this time. No other modifying factors. Related Data Home Medications ?Medication ?Instructions ?Recorded ?Confirmed ibuprofen 400 mg tablet 400 mg PO Q6H PRN PRN 10/14/16 06/25/23 loratadine 10 mg tablet 10 mg PO PRN PRN 10/19/16 06/25/23 calcium carbonate 600 mg-vitamin 1 ea PO DAILY 11/27/16 06/25/23 D3 20 mcg (800 unit) tablet (Caltrate with Vitamin D3) melatonin 3 mg tablet 3 mg PO HS PRN 12/23/19 06/25/23 Al hyd-Mg tr-alg ac-sod bicarb 80 1 tab PO DAILY PRN 01/27/21 06/25/23 mg-14.2 mg chewable tablet (Gaviscon) cholecalciferol (vitamin D3) 25 25 mcg PO DAILY 01/27/21 06/25/23 mcg (1,000 unit) capsule losartan 50 mg tablet 50 mg PO DAILY #90 tabs 08/01/23 Previous Rx's ?Medication ?Instructions ?Recorded ibuprofen 400 mg tablet 400 mg PO Q6H PRN PRN 10/14/16 losartan 50 mg tablet 50 mg PO DAILY #90 tabs 08/01/23 Allergies Allergy/AdvReac Type Severity Reaction Status Date / Time lisinopril AdvReac Intermediate cough Verified 06/25/23 13:00 General JOAQUINA: 4 Review of Systems All systems reviewed & are unremarkable except as noted in HPI and below Exam Narrative Exam Narrative: 1.Const: Well-nourished, Well-developed, appearing stated age 2.Eyes: PERRL, no conjunctival injection, and symmetrical lids. 3.ENT: Atraumatic external nose and ears. Moist MM. Neck: Symmetric, trachea midline, No thyromegaly. 4.CVS: +S1/S2, No murmurs or gallops. Peripheral pulses 2+ and equal in all extremities. Brisk capillary refill in all extremities. 5.RESP: Unlabored respiratory effort. Clear to auscultation bilaterally. No wheezes rales or rhonchi 6.GI: Soft, Nontender/Nondistended, No hepatosplenomegaly. No guarding or rebound. 7.MSK: Normal exam for the right upper extremity and bilateral lower extremities. No chest wall tenderness. No head neck or back pain. Left upper extremity demonstrates deformity at the elbow, inability to flex or extend. No tenderness over the shoulder or midshaft humerus. No distal forearm wrist or hand pain. Radial pulse +2 bilaterally, intact sensation in all fingertips. Brisk capillary refill. 8.Skin: Warm, Dry. No rashes or lesions. 9.Neuro: copra processor II-XII grossly intact. Sensation grossly intact, no focal neurologic deficits. 10.Psych: (AAO) x3. Appropriate mood and affect Procedures Orthopedic Splinting/Casting Injury #1: Side: left Upper Extremity Injury Location: elbow Upper Extremity Immobilizer: sling/shoulder immobilizer and posterior splint Medical Decision Making 68-year-old female with a past medical history of hypertension, previous transaminitis, previous left elbow dislocation, GERD, who is right-hand dominant, previous left wrist fracture with subsequent hardware placement, presents today for evaluation of left elbow pain. About an hour prior to arrival the patient was leaning on a folding chair when she slipped and her left elbow hit the ground. She had immediate pain and deformity. She contacted EMS and was brought to the ER for further assessment. She denies numbness, but does admit to mild tingling in the tips of her fingers. She denies any trauma to the head shoulder back or chest. No other complaints at this time. No other modifying factors. Exam demonstrates deformity for the left elbow, no tenderness or deformity for the shoulder forearm hand or wrist. Sensation intact, subjective tingling noted in fingertips. Radial pulse +2 bilaterally, brisk capillary refill. Concern for elbow dislocation versus fracture. Will get an x-ray, monitor closely and reassess. Will treat the patient's pain. 5:59 PM X-ray shows evidence of mildly displaced fracture involving the proximal metaphysis of the left ulna with mild displacement. Patient remains neurovascularly intact distally. Brisk capillary refill is present all fingers, good sensation, no sensation deficit. Radial pulse +2. Patient's pain is significantly improved. She was splinted with a posterior splint. We did review the case with orthopedics Dr. Cordova, who does recommend surgical management. He and his office will contact the patient in the next 48 hours to establish a date for surgical intervention. Patient tolerated splint and sling well. At time of discharge patient remained neurovascularly intact with no tenting of the skin or soft tissues. Patient will be discharged. Discussed red flags for which to return. Discussed the case with the patient's and he is in agreement with plan. Will give for narcotic pain pills for home use for breakthrough pain. I have extensively reviewed the treatment plan and discharge instructions with the patient and their family. I have addressed all patient concerns at this time. The patient and family was made aware of what symptoms to monitor for that would warrant a return to the emergency department. Discussed the plan with the patient and family, they demonstrate verbal understanding and agreement with our assessment and plan at this time. The documentation in this chart was dictated using [employer] dictation software. Please excuse any dictation errors. FINDINGS: BONES: There is an acute fracture through the proximal metaphysis of the left ulna. There is mild displacement of the fracture noted. No bony destructive lesion is seen. JOINTS: The elbow is normally aligned. No joint effusion is seen. SOFT TISSUE: There is soft tissue swelling of the dorsum of the elbow. IMPRESSION: Mildly displaced fracture involving the proximal metaphysis of the left ulna with mild displacement and associated soft tissue swelling. Quality:SDOH Health Related Social Needs: No Data to Display PFSH All Active Problems (Updated 11/03/23 @ 17:53 by Richard Joiner DO) Fracture of left ulna (Acute) Rib pain on left side (Acute) Osteoporosis (Chronic) Rosacea (Chronic) Polyp of colon (Chronic 01/04/06) tubulovillious adenoma at 15cm; [place] [facility] [place] Gastroesophageal reflux disease with esophagitis (Chronic) Fatty liver (Chronic) declines F/U Essential hypertension (Chronic) Elev transaminase/LDH (Chronic) R lobe hemangioma on US; neg Hep series; elevated GGT; high alcohol intake Cholelithiasis without obstruction (Chronic) Annual physical exam (Acute 08/24/15) Medical History Contusion of left elbow, initial encounter Ankle strain Vision changes Acute bilateral low back pain Knee pain Right shoulder pain Seasonal allergies (06/23/14) Osteopenia Dexa w/T-scores -1.6; -1.2; -0.7 Esophageal reflux Compression fracture of body of thoracic vertebra (10/13/16) GERD (gastroesophageal reflux disease) Polyp of colon, adenomatous Fatty liver Essential hypertension Surgical History Hysterectomy, Laproscopic (~1998) FIBROIDS Fracture, Open Treatment (~01/2004) [facility]; LEFT WRIST Colonoscopy - MAC (03/06/17) Colonoscopy - IV Sedation 2009 Family History Mother , AGE 70 Essential hypertension Ovarian cancer Father Essential hypertension Sister Essential hypertension Ulcerative colitis Sister Multiple sclerosis Sister Essential hypertension Colorectal cancer Brother No problems noted. Brother No problems noted. Maternal Grandfather , AGE 80 Pancreatic cancer Alcohol abuse Paternal Grandfather , AGE 83 Depression Paternal Grandmother , AGE 90 Lung disease Maternal Grandmother , age 80+ Heart disease CHF (congestive heart failure) Essential hypertension Other Heart attack Social History Smoking/Tobacco Use Status: Never Second Hand Exposure: Yes Smoking risk assessment performed?: Yes Alcohol Intake: current Alcohol Intake frequency: 3 or more drinks per day Alcohol type: wine Drug use: Never Substance use type: does not use Caregiver/Support person: No Household members: spouse Housing: house Communication Needs: None Pets and animals: Yes Pets and animals: cat(s) Sexually active: No Do you think of yourself as: straight/heterosexual Current gender identity: female What is your relationship status?: How often do you talk on the phone with friends or family?: three or more times per week How often do you get together with friends or relatives?: decline to answer How often do you attend pentecostalism or synagogue services?: decline to answer Do you belong to any clubs or organized social groups?: no Panel score (0-1 are the most socially isolated patients): 2 What type of physical activity do you participate in: walking and aerobic Duration: 45-60 minutes/day Frequency: daily Merly/Druze: No preference Special merly needs: No Seatbelt use: always Drive intox or ride w/intox funeral limousine driver: No Do you feel safe at home: Yes Do you feel safe in your relationship?: Yes Victim of physical abuse: No Victim of emotional abuse: No Victim of sexual abuse: No Would you like helpful sources: No
[2023-11-03] MEDS: Normal Saline 500 ML IV (15:50)
[2023-11-03 15:53] LABS: Abs Immature Grans 0.05 10^3/uL (0.0-0.06); Absolute Basophil Count 0.07 10^3/uL (0.0-0.2); Absolute Eosinophil Count 1.04 10^3/uL (0.0-0.7); Absolute Lymphocyte Count 2.14 10^3/uL (1.2-3.4); Absolute Monocyte Count 0.57 10^3/uL (0.1-0.8); Absolute Neutrophil Count 4.63 10^3/uL (1.2-6.7); Basophils % 0.8 %; Eosinophils % 12.2 %; HCT 43.9 % (36.0-46.0); HGB 15.1 g/dL (11.2-15.7); Immature Grans % 0.6 %; Lymphocytes % 25.2 %; MCHC 34.4 % (32.0-36.0); MCV 93 fL (80-95); MPV 9.5 fL (8.0-11.0); Monocytes % 6.7 %; Neutrophils % 54.5 %; Platelet Count 325 10^3/uL (130-400); RBC 4.72 10^6/uL (3.93-5.22); RDW 11.8 % (11.7-14.6); RDW-SD 40.4 fL
[2023-11-03 15:55] VITALS: TEMP 36.5
[2023-11-03] MEDS: MORPHine 4 MG/ML SYR IVP (15:55)
[2023-11-03] MEDS: Ondansetron 4 MG/2 ML VIAL IVP (15:57)
[2023-11-03] MEDS: Ketorolac 15 MG/ML VIAL IVP (16:00)
[2023-11-03 16:03] LABS: Anion Gap 14.1 mmol/L (3-11); BUN 14 mg/dL (7-18); CO2 22.9 mmol/L (21.0-32.0); CREATININE 0.8 mg/dL (0.55-1.02); Calcium 10.3 mg/dL (8.5-10.1); Chloride 98 mmol/L (98-107); Estimated GFR 79.71 (mL/min/1.73m2); Glucose 115 mg/dL (74-106); Potassium 3.5 mmol/L (3.5-5.1); Sodium 135 mmol/L (136-145)
[2023-11-03] MEDS: ACETAMINOPHEN 1,000 MG/100 ML BTL 400 MG IVPB (16:08)
[2023-11-03 18:03] VITALS: BP 133/75; PULSE 86; RESP 18; TEMP 37; O2SAT 95
[2023-11-03] MEDS: MORPHine 4 MG/ML SYR 2 MG IVP (18:03)
== END 2023-11-03 18:16 | disposition home or self-care (01) ==
PROVIDERS: Emergency Provider Student in an Organized Health Care Education/Training Program; PCP Family Medicine
DX: S52.292A Other fracture of shaft of left ulna, initial encounter for closed fracture (principal); W19.XXXA Unspecified fall, initial encounter
CPT/HCPCS: 25530; 36415; 80048; 96361; 96365; 96375; 96376; 99284; 73080; 85025; 99283; J0131; J1885; J2270; J2405

== ENCOUNTER 2023-11-06 12:42 | Day surgery (SDC) | payer MEDICARE, SELFPAY ==
[2023-11-06] VITALS (14 sets, daily range): BP systolic 95–128; BP diastolic 46–75; PULSE 71–87; RESP 13–20; TEMP 36.2–36.9; O2SAT 92–99; BMI 31.4
--- NOTE | 2023-11-06 13:24 | W.PM.DSUDISC ---
Date of service: 11/06/23 Time of Service: 14:03 Discharge Plan Disposition Patient Disposition: Home Condition: Good Discharge Details Reason For Visit: Left Olecranon Fracture Attending Provider: Albert Cordova Primary Care Provider: Roxana Mark Home Meds and New Rx's Prescriptions: New hydrocodone-acetaminophen 5-325 mg tablet 1 tab PO Q6H PRN (Reason: severe pain) Qty: 12 0RF Rx Instructions: Take one tablet up to every 6 hours as needed for severe postoperative pain acetaminophen 500 mg tablet 500 mg PO Q6H PRN (Reason: pain) Qty: 60 2RF ibuprofen 600 mg tablet 600 mg PO TID PRN (Reason: pain) Qty: 60 0RF Continued cholecalciferol (vitamin D3) 25 mcg (1,000 unit) capsule 25 mcg PO DAILY melatonin 3 mg tablet 3 mg PO HS PRN loratadine 10 MG tablet 10 mg PO PRN PRN calcium carbonate-vitamin D3 [Caltrate with Vitamin D3] 1 EACH tablet 1 ea PO DAILY Gaviscon 80-14.2 mg tablet,chewable 1 tab PO DAILY PRN losartan 50 mg tablet 50 mg PO DAILY Qty: 90 4RF Discontinued ibuprofen 400 MG tablet 400 mg PO Q6H PRN PRN0RF Discharge Instructions Additional Instructions: ORIF Elbow Discharge Instructions Activity: You should stay in the splint. You may use the sling for comfort as needed. You may come out of the sling and move your hand and fingers as tolerated. Medications: - You should take Tylenol and Ibuprofen around the clock. - You have been prescribed Hydrocodone for breakthrough pain. Dressings: - The initial surgical splint and dressing will stay in place until follow-up. Please keep the splint clean and dry. Follow-up: 10 days Referrals: Albert Cordova MD [ [facility] STAFF PHYSICIAN] - Equipment/Supplies: Sling Activity:: Activity as Tolerated Remove Dressings/Wound Care:: 72 hours Shower/Bathe:: 72 hours Diet:: As Tolerated Discharge Orders Discharge Orders: Discharge Order (Routine); Ordered 11/06/23 Ordered By: Nidia Gonzales
[2023-11-06] MEDS: Acetaminophen 500 MG TAB 1000 MG PO (13:49)
[2023-11-06] MEDS: Celecoxib 200 MG CAP 400 MG PO (13:50)
[2023-11-06] MEDS: Lactated Ringers 1,000 ML 80 ML IV (13:59)
--- NOTE | 2023-11-06 14:06 | W.ANESPRE ---
General Info Date of Service Date Performed: 11/06/23 Height: 5 ft Weight: 73 kg Body Mass Index (BMI): 31.4 Surgical Procedure: Operation Date: 11/06/23 15:25 Proposed Procedure Side Surgeon p Olecranon ORIF Left Albert Cordova MD Actual Procedure Side Surgeon p Olecranon ORIF Left Albert Cordova MD Pre-Op Diagnosis Post-Op Diagnosis Fracture of left ulna Meds Allergies and Home Medications Allergies Allergy/AdvReac Type Severity Reaction Status Date / Time lisinopril AdvReac Intermediate cough Verified 11/06/23 13:40 Home Medication ?Medication ?Instructions ?Recorded loratadine 10 mg tablet 10 mg PO PRN PRN 10/19/16 calcium carbonate 600 mg-vitamin 1 ea PO DAILY 11/27/16 D3 20 mcg (800 unit) tablet (Caltrate with Vitamin D3) melatonin 3 mg tablet 3 mg PO HS PRN 12/23/19 Al hyd-Mg tr-alg ac-sod bicarb 80 1 tab PO DAILY PRN 01/27/21 mg-14.2 mg chewable tablet (Gaviscon) cholecalciferol (vitamin D3) 25 25 mcg PO DAILY 01/27/21 mcg (1,000 unit) capsule losartan 50 mg tablet 50 mg PO DAILY #90 tabs 08/01/23 acetaminophen 500 mg tablet 500 mg PO Q6H PRN pain #60 tabs 11/06/23 hydrocodone 5 mg-acetaminophen 325 1 tab PO Q6H PRN severe pain #12 11/06/23 mg tablet tabs ibuprofen 600 mg tablet 600 mg PO TID PRN pain #60 tabs 11/06/23 Current Visit Medications: Current Medications Generic Name Dose Route Start Last Admin Trade Name Freq PRN Reason Stop Dose Admin Acetaminophen 1,000 mg 11/06/23 06:00 11/06/23 13:49 Acetaminophen 500 Mg Tab PO 12/05/23 23:59 1,000 mg PREOP LYNN Administration Acetaminophen 650 mg 11/06/23 14:01 Acetaminophen 325 Mg Tab PO 12/06/23 14:00 Q4H PRN PRN Hydrocodone Bitart/Acetaminophen 0 tab 11/06/23 14:01 Hydrocodone 5/Acetaminophen 325 Tab PO 12/06/23 14:00 Q3H PRN PRN Pain Celecoxib 400 mg 11/06/23 06:00 11/06/23 13:50 Celecoxib 200 Mg Cap PO 12/05/23 23:59 400 mg PREOP LYNN Administration Ringer's Solution 1,000 mls @ 80 mls/hr 11/06/23 06:00 11/06/23 13:59 IV 12/05/23 23:59 80 mls/hr INFUSION LYNN Administration Cefazolin Sodium/Dextrose 2 gm in 50 mls @ 100 mls/hr 11/06/23 06:00 Ancef Duplex IVPB 12/05/23 23:59 PREOP LYNN Tranexamic Acid/Sodium Chloride 1,000 mg in 100 mls @ 600 mls/hr 11/06/23 06:00 IVPB 12/05/23 23:59 PREOP LYNN IV Miscellaneous Supplies 1 each 11/06/23 06:00 Iv Access IV 12/05/23 23:59 DIRECTED LYNN Sodium Chloride 0 ml 11/06/23 06:00 Normal Saline Flush 10 Ml Syr IV 12/05/23 23:59 PRN PRN Sodium Chloride 0 ml 11/06/23 06:00 Normal Saline 10 Ml Vial IJ 12/05/23 23:59 DIRECTED PRN Sterile Water 0 ml 11/06/23 06:00 Water,Injection,Sterile 10 Ml Vial IJ 12/05/23 23:59 DIRECTED PRN PFSH Active Problems Active Problems: Problem Status Onset Code Closed fracture of left olecranon process Acute S52.022A Fracture of left ulna Acute S52.202A Rib pain on left side Acute R07.81 Osteoporosis Chronic M81.0 Rosacea Chronic L71.9 Polyp of colon Chronic 01/04/06 K63.5 Gastroesophageal reflux disease with esophagitis Chronic K21.0 Fatty liver Chronic K76.0 Essential hypertension Chronic I10 Elev transaminase/LDH Chronic R74.0 Cholelithiasis without obstruction Chronic K80.20 Annual physical exam Acute 08/24/15 Z00.00 Medical History Medical History Contusion of left elbow, initial encounter Ankle strain Vision changes Acute bilateral low back pain Knee pain Right shoulder pain Seasonal allergies (06/23/14) Osteopenia Dexa w/T-scores -1.6; -1.2; -0.7 Esophageal reflux Compression fracture of body of thoracic vertebra (10/13/16) GERD (gastroesophageal reflux disease) Polyp of colon, adenomatous Fatty liver Essential hypertension Surgical History Surgical History Hysterectomy, Laproscopic (~1998) FIBROIDS Fracture, Open Treatment (~01/2004) [facility]; LEFT WRIST Colonoscopy - MAC (03/06/17) Colonoscopy - IV Sedation 2009 Tobacco Smoking/Tobacco Use Status: Never Passive smoking exposure: Yes (my smokes so I am exposed to secondhand smoke) Second hand exposure: Yes Alcohol Alcohol Intake: current Alcohol intake frequency: 3 or more drinks per day Alcohol type: wine Substance Use Substance use: Never Substance use type: does not use Vital Signs and Lab Results Vital Signs Most Recent Vital Signs in EMR: Most Recent Vital Signs Temp Pulse Resp BP Pulse Ox 36.3 C L 79 20 119/70 99 11/06/23 13:43 11/06/23 13:43 11/06/23 13:43 11/06/23 13:43 11/06/23 13:43 Lab Results Blood Type / Crossmatch: No Data to Display Complete Blood Count: White Blood Count 8.50 10^3/uL (4.4-10.8) 11/03/23 15:48 Red Blood Count 4.72 10^6/uL (3.93-5.22) 11/03/23 15:48 Hemoglobin 15.1 g/dL (11.2-15.7) 11/03/23 15:48 Hematocrit 43.9 % (36.0-46.0) 11/03/23 15:48 Platelet Count 325 10^3/uL (130-400) 11/03/23 15:48 Complete Metabolic Panel: Sodium 135 mmol/L (136-145) L 11/03/23 15:48 Potassium 3.5 mmol/L (3.5-5.1) 11/03/23 15:48 Chloride 98 mmol/L (98-107) 11/03/23 15:48 Carbon Dioxide 22.9 mmol/L (21.0-32.0) 11/03/23 15:48 BUN 14 mg/dL (7-18) 11/03/23 15:48 Creatinine 0.8 mg/dL (0.55-1.02) 11/03/23 15:48 Est GFR (CKD-EPI 2020) 79.71 (mL/min/1.73m2) 11/03/23 15:48 Calcium 10.3 mg/dL (8.5-10.1) H 11/03/23 15:48 Glucose 115 mg/dL (74-106) H 11/03/23 15:48 Liver Function Panel: No Data to Display Coagulation Panel: No Data to Display Cardiac Panel: No Data to Display Arterial Blood Gas: No Data to Display Venous Blood Gas: No Data to Display Pancreas Panel: No Data to Display Thyroid Panel: No Data to Display Infectious Disease: No Data to Display Blood Cultures: No Data to Display Toxicology Panel: No Data to Display Anesthesia Assessment and Plan Anesthesia History Personal History: No History of Anesthesia Complications Family History: No Family History of Anesthesia Complications Exercise Tolerance Exercise Tolerance: Metabolic Equivalents>4 Pertinent Negatives Pertinent Negatives: No Symptoms of GERD Cardiac & Pulmonary Exam Cardiac Exam: Normal S1/S2 Heart Sounds Pulmonary Exam: Clear Bilateral Breath Sounds Implantable Cardiac Device Does patient have a Pacemaker or an ICD?: No Airway Exam Known Difficult Airway: No Mallampati Class: 2 Mouth Opening: Normal (> 3cm) Thyromental Distance: Greater than 3 cm Neck Range of Motion: Full ROM Neck Circumference: Normal Teeth Condition: Normal Dentition ASA Classification ASA Score: ASA 2 Emergency Case?: No NPO Status NPO Status: NPO Clears >2 hours, Solids >8 hours Anesthesia Plan Resuscitation Status: Full Code Anesthesia Technique: General Anesthesia Airway Planned: Endotracheal Tube Monitors Used: Standard Monitors
--- NOTE | 2023-11-06 14:06 | W.PREOPHP ---
Assessment and Plan Assessment and plan (1) Closed fracture of left olecranon process: Status: Acute Assessment and plan: Claire is a 68-year-old female who has a displaced fracture of the left olecranon. Given the nature of this fracture with this displacement and importance for the extensor mechanism of the left elbow I recommend operative fixation. I reviewed the technical details. I discussed the risk to include bleeding, infection, pain, stiffness, damage to nerves and vessels, damage to muscle and tendons, malunion, nonunion, hardware prominence, hardware failure, stiffness. Despite these risk, she elects to proceed. History of Present Illness History of Present Illness Chief Complaint: Left elbow pain Narrative: Claire is a 68-year-old female who is otherwise healthy and was sitting outside in a lawn chair. As she was getting up she slipped on some wet grass and landed directly onto the left elbow in a flexed position. She had immediate pain. There is deformity and inability use the left arm. Therefore she present to the emergency department on 25 October the day of the fall. She was diagnosed with a displaced left olecranon fracture. I was called in consultation and recommended posterior slab splint with operative intervention as an outpatient. She has been able to tolerate pain at home with the splint although it has been challenging. She is found the splint to be cumbersome and limits her ability to function around the house. She denies numbness or tingling. She has a previous history of a left distal radius fracture treated with plates and screws in 2003. She also reports having a history of a murmur incidentally discovered more than 20 years ago. She reports having a workup which included a procedure, she thinks was an echocardiogram, and was told there is nothing to do about this. She has no chest pain. She has no shortness of breath. She has no sick contacts. Review of Systems All systems reviewed & are unremarkable except as noted in HPI and below PFSH All Active Problems Closed fracture of left olecranon process (Acute) Fracture of left ulna (Acute) Rib pain on left side (Acute) Osteoporosis (Chronic) Rosacea (Chronic) Polyp of colon (Chronic 01/04/06) tubulovillious adenoma at 15cm; declined local NH, declined [facility] [place] both in 2008,2009 Gastroesophageal reflux disease with esophagitis (Chronic) Fatty liver (Chronic) declines F/U Essential hypertension (Chronic) Elev transaminase/LDH (Chronic) R lobe hemangioma on US; neg Hep series; elevated GGT; high alcohol intake Cholelithiasis without obstruction (Chronic) Annual physical exam (Acute 08/24/15) Medical History Contusion of left elbow, initial encounter Ankle strain Vision changes Acute bilateral low back pain Knee pain Right shoulder pain Seasonal allergies (06/23/14) Osteopenia Dexa w/T-scores -1.6; -1.2; -0.7 Esophageal reflux Compression fracture of body of thoracic vertebra (10/13/16) GERD (gastroesophageal reflux disease) Polyp of colon, adenomatous Fatty liver Essential hypertension Surgical History Hysterectomy, Laproscopic (~1998) FIBROIDS Fracture, Open Treatment (~01/2004) [facility]; LEFT WRIST Colonoscopy - MAC (03/06/17) Colonoscopy - IV Sedation 2009 Family History Mother , AGE 70 Essential hypertension Ovarian cancer Father Essential hypertension Sister Essential hypertension Ulcerative colitis Sister Multiple sclerosis Sister Essential hypertension Colorectal cancer Brother No problems noted. Brother No problems noted. Maternal Grandfather , AGE 80 Pancreatic cancer Alcohol abuse Paternal Grandfather , AGE 83 Depression Paternal Grandmother , AGE 90 Lung disease Maternal Grandmother , age 80+ Heart disease CHF (congestive heart failure) Essential hypertension Other Heart attack Social History Smoking/Tobacco Use Status: Never Second Hand Exposure: Yes Smoking risk assessment performed?: Yes Alcohol Intake: current Alcohol Intake frequency: 3 or more drinks per day Alcohol type: wine Drug use: Never Substance use type: does not use Caregiver/Support person: No Household members: spouse Housing: house Communication Needs: None Pets and animals: Yes Pets and animals: cat(s) Sexually active: No Do you think of yourself as: straight/heterosexual Current gender identity: female What is your relationship status?: How often do you talk on the phone with friends or family?: three or more times per week How often do you get together with friends or relatives?: decline to answer How often do you attend pentecostalism or mormonism services?: decline to answer Do you belong to any clubs or organized social groups?: no Panel score (0-1 are the most socially isolated patients): 2 What type of physical activity do you participate in: walking and aerobic Duration: 45-60 minutes/day Frequency: daily Merly/Church: No preference Special merly needs: No Seatbelt use: always Drive intox or ride w/intox wagon driver: No Do you feel safe at home: Yes Do you feel safe in your relationship?: Yes Victim of physical abuse: No Victim of emotional abuse: No Victim of sexual abuse: No Would you like helpful sources: No Meds Allergies and Home Medications Allergies Allergy/AdvReac Type Severity Reaction Status Date / Time lisinopril AdvReac Intermediate cough Verified 11/06/23 13:40 Home Medications ?Medication ?Instructions ?Recorded ?Confirmed ?Type loratadine 10 mg tablet 10 mg PO PRN PRN 10/19/16 11/05/23 History calcium carbonate 600 mg-vitamin 1 ea PO DAILY 11/27/16 11/05/23 History D3 20 mcg (800 unit) tablet (Caltrate with Vitamin D3) melatonin 3 mg tablet 3 mg PO HS PRN 12/23/19 11/05/23 History Al hyd-Mg tr-alg ac-sod bicarb 80 1 tab PO DAILY PRN 01/27/21 11/05/23 History mg-14.2 mg chewable tablet (Gaviscon) cholecalciferol (vitamin D3) 25 25 mcg PO DAILY 01/27/21 11/05/23 History mcg (1,000 unit) capsule losartan 50 mg tablet 50 mg PO DAILY #90 tabs 08/01/23 11/06/23 Rx acetaminophen 500 mg tablet 500 mg PO Q6H PRN pain #60 tabs 11/06/23 Rx hydrocodone 5 mg-acetaminophen 325 1 tab PO Q6H PRN severe pain #12 11/06/23 Rx mg tablet tabs ibuprofen 600 mg tablet 600 mg PO TID PRN pain #60 tabs 11/06/23 Rx Exam Const General: cooperative, healthy appearing, comfortable and no acute distress Resp Effort & Inspection: normal respiratory effort Auscultation: clear to auscultation bilaterally Cardio Rate: regular rate Rhythm: regular rhythm Extrem Other: Evaluation of left upper extremity is in a posterior splint. There is no obvious skin defects around the elbow. She has intact EPL, FPL, interossei function. Sensation intact to light touch over the median, radial, ulnar nerve. Cap refill less than 2 seconds. Results Imaging Imaging Studies: X-ray of the left elbow shows a displaced proximal ulna fracture. This seems to be in a oblique fracture exiting just distal to the joint with some radial translation. There also appears to be some shortening and extension of the fracture fragment. There is a question of a small intra-articular line which is nondisplaced. No apparent fracture of the distal humerus or of the radius. Last Vital Signs Temp 36.3 C L 11/06/23 13:43 Pulse 79 11/06/23 13:43 Resp 20 11/06/23 13:43 BP 119/70 11/06/23 13:43 Pulse Ox 99 11/06/23 13:43
[2023-11-06] MEDS: ceFAZolin 2 GM/50 ML BAG IVPB (14:20)
[2023-11-06] MEDS: TRANEXAMIC ACID/SOD. CHL. 1,000 MG/100 ML BAG 600 MG IVPB (14:25)
[2023-11-06] MEDS: Bupivacaine 0.5% Pres-Free W/EPI 30 ML VIAL (14:47)
--- NOTE | 2023-11-06 15:31 | ROE_ITS ---
Date of service: 11/06/23 Time of Service: 14:30 Operative Note Operative Note DATE OF PROCEDURE: 11/06/23 PRE-OP DIAGNOSIS: Left Proximal Ulna Fracture POST-OP DIAGNOSIS: same PROCEDURE: Operative Fixation of Left Proximal Ulna (Olecranon) Fracture SURGEON: Albert Cordova METAL BOX MAKER: Nidia Gonzales ANESTHESIA TYPE: General LMA/ETT Refer to Anesthesia Record ESTIMATED BLOOD LOSS: 20 TOURNIQUET TIME: 0 COMPLICATIONS: None Patient was transported to: PACU Patient's condition: stable Indications: Claire is a 68-year-old female who fell directly onto her left elbow suffering a displaced proximal ulna fracture. Given the nature of the fracture and its instability of the elbow I recommended operative fixation. I reviewed the procedure with her. I discussed the risk to include bleeding, infection, pain, stiffness, malunion, nonunion, damage to nerves and vessels, damage to muscle and tendons, hardware prominence, hardware failure, need for repeat procedures including hardware removal. Despite these risk, she elected to proceed. Findings: There was a oblique fracture of the proximal ulna from dorsal?proximal to volar?distal. This was most unstable in an ulnar to radial direction. The fracture stabilized and reduced, held provisionally with K wires and then secured with a Synthes proximal ulna plate. Procedure Description: Claire was greeted in the preoperative holding area. Her dinner was confirmed the correct site was identified and marked. The consent was reviewed the patient and signed. His physical was updated. She has not taken back to the operating room and placed in supine position with all bony problems well-padded. The left arm was then prepped with ChloraPrep and draped in a standard fashion, holding the arm across her chest for working on the olecranon and leaving the side free. Prophylactic antibiotics were administered, cefazolin 2 g. A timeout performed for safe surgery. An incision was then made overlying the ulna and then curving around the tip of the olecranon. This was taken down sharply through the skin. Once the ulnar border was identified this was used as a reference point and dissection was carried down to the ulnar border through the bursa approximately. There was notable deformity seen. Soft tissues were elevated off to better identify the fracture. A navarrete elevator was utilized to see the fracture edges utilizing the lateral border and dorsal border as a primary gauges for fracture reduction. The fracture was debrided of any early fibrous tissue and healing. This was irrigated. A manual reduction was then performed which was mostly with lateral translation of the proximal fragment and some slight extension of the arm and compression. The fracture was an oblique pattern such that there is a shelf of dorsal bone which is relatively unstable and hard to hold in position. I then placed 2 K wires 1 medial and 1 lateral from the tip of the olecranon into the shaft of the ulna which secured the fracture. C arm fluoroscopy was utilized which showed appropriate reduction of the fracture. There is no joint, articular, extension. I then placed a 2.7/3.5 mm variable angle proximal ulna plate onto the proximal ulna. Given that the triceps is fully intact on the olecranon and I had areas of purchase more distally I did not take down the triceps. Instead, I elected to keep the triceps intact with the plate overlying it. The plate was placed all the way down against the triceps fascia and then pinned into position overlying the ulnar shaft distally. A single 3.5 millimeter screw was placed distally into the sliding hole. While holding the plate in position along with a K wire and providing some compression a single 2.7 millimeter screw was placed proximally. The K wire was moved from the plate and x-ray use to show appropriate positioning of the plate, elevated off the tip of the olecranon due to the triceps, but overlying the ulna appropriately with reduction of the fracture. I then placed and a single 3.5 millimeter screw distally in the shaft and 2 additional 2.7 mm metaphyseal locking screws distal to the fracture site. 3 additional 2.7 mm locking screws were placed proximally, 2 through the triceps in a transverse orientation. K wires were removed. Final x-rays were obtained. Elbow was taken through range of motion shows stability 240 degrees of flexion. The deep tissues and subcutaneous tissues were then injected with 0.5% bupivacaine. Some bursal and deep fascial tissue was then closed overlying the plate. The deep tissue was closed with 2-0 Vicryl. The skin was closed with a 3-0 nylon. The wound was dressed with Xeroform, 4 x 4, ABD, Webril. A posterior slab arm splint was then applied. At the end the case all counts were correct. She was transferred back to the PACU in stable condition suffering no complications.
--- NOTE | 2023-11-06 15:46 | DI.RAD_ITS ---
Exam(s) XR ELBOW LT LIMITED EXAM: XR ELBOW LT LIMITED CLINICAL HISTORY: Fracture of left ulna TECHNIQUE: 2D and realtime digital imaging was performed. CONTRAST MATERIAL: Refer to procedure report. COMPARISON: CR XR ELBOW LT COMPLETE from 11/03/2023 FINDINGS: Fluoroscopy was provided for Dr. Cordova during the performance of a reduction and internal fixatio n of the ulnar fracture. Please refer to the procedure report for complete details. Ka,r=0.27 mGy IMPRESSION: RADIATION DOSE DELIVERED: 0.0 0.0 0
--- NOTE | 2023-11-06 16:30 | W.PM.PROGNOT ---
Date of Service Date of service: 11/06/23 Time of Service: 16:30 Assessment and Plan Assessment and plan (1) Closed fracture of left olecranon process: Status: Acute Assessment and plan: I saw Claire in the PACU as a postop check following the surgery for her left olecranon. She reports no pain. She does report some numbness about the little finger primarily. She reports some difficulty with some of her hand function. On examination she has wrist extension but some limited EPL function. She shows little ability to flex the thumb IP joint or the IP joints of the index and middle finger. She was able to show flexion of the little finger and ring finger. She had wrist extension but some limited finger extension. She reported decrease sensation of the little finger and to lesser extent the ulnar side of the ring finger. She endorses mild decrease sensation of the fingers in the median nerve distribution. She endorses full sensation of the radial nerve distribution. As I was there she seem to be making improvements with the range of motion as well of the hand. Pulse oximeter was on the hand which showed a pulse ox of 93%. At this point, suspicion is that this is related to local anesthetic injected around the proximal ulna which infiltrated to branches of the median and ulnar nerve. There was no dissection carried along the medial excepted there is a fracture. Given the location of the fracture also be unlikely to have any nerve entrapment, particularly involving 2 different nerves. The median nerve is far volar to where we are operating. My suspicion at this will continue to resolve over the next 8 to 12 hours. I will call to check on her tomorrow. Objective Last Vital Signs Temp 36.6 C 11/06/23 16:20 Pulse 71 11/06/23 16:21 Resp 16 11/06/23 16:21 BP 99/60 L 11/06/23 16:21 Pulse Ox 94 11/06/23 16:21 Time Spent with Patient Time Spent with Patient: <25 minutes Time was spent: obtaining and/or reviewing separately otained hiistory and counseling the patient
--- NOTE | 2023-11-06 17:13 | W.ANESPOSTOP ---
Postoperative Evaluation Date, Time and Location Date Performed: 11/06/23 Time Performed: 17:13 Patient Location: Day Surgery Unit Vital Signs Most Recent Imported Vital Signs: Most Recent Vital Signs Temp Pulse Resp BP Pulse Ox 36.6 C 71 16 99/60 L 94 11/06/23 16:20 11/06/23 16:21 11/06/23 16:21 11/06/23 16:21 11/06/23 16:21 Pain Score Most Recent Pain Score: Most Recent Pain Score Pain Level 0 11/06/23 16:20 Assessment Mental Status: Awake (Alert & Oriented to Patient Baseline) Airway and Respiratory Function: Patent airway with normal (patient baseline) respiratory exam Cardiovascular Function: Hemodynamically Stable Hydration Status: Adequately Hydrated Nausea & Vomiting: No Nausea or Vomiting Pain: Pt. Denies Any Pain Peripheral Nerve Block: Patient did not receive a nerve block Postoperative Comments:: Patient reports no difficulty breathing and educated about emesis prior to extubation. Lung sounds clear. Patient has no questions at this time.
--- NOTE | 2023-11-06 17:58 | NUR.NOTE ---
Nursing Note: Patient's Robby calling repeatedly when patient was having ORIF completed on 11/06/2023. Was given updates by [facility] nursing staff as to if she was still in OR/PACU/etc. When patient arrived back in [facility] area, I attempted to reach out to him to come pick her up, call went to voicemail. The only phone number available was the home phone number. Patient called [facility] again, was placed on hold by PACU nurse Marla who was unsure of where the patient was at this time, Robby hung up before [facility] nurse could get phone. PACU nurse stated that he was yelling and aggressive on the phone. Robby then called the nursing molding supervisor on shift, was verbally aggressive and swearing at her as well. Nursing molding supervisor came to U to find out what was happening and was debriefed on above mentioned situation. Robby then spoke to switchboard who reached out to PACU nurses, PACU nurse then called D[facility] stating that he is tearful that nobody has spoken to me or give me an update. I attempted to call him x5, no answer, all to voicemail. I then asked pt to reach out to him to try to de-escalate him and have him home. Pt stated she was unable to get a hold of him. I called security to request they be on standby as I was concerned for my safety as well as the safety of my co-workers. Security agreed to be on standby, waiting for call when Robby arrived. Robby arrived outside of [facility] door, aggressively banging on the door and pressing intercom button repeatedly. Pain clinic nurse Preeti attempted to see what he needed, he continued to yell and be aggressive towards staff. I went to [facility] door with nursing molding supervisor, security behind patient in hallway. He began to yell at me. I spoke clearly and firmly explaining that In order for him to come and speak to us and his , he would need to remain calm without yelling or swearing. Aggressive language/swearing is not tolerated in this hospital. He began to yell stating that we hadn't given him an update. I explained I had tried to reach out to him several times, as had his . He denies that this happened. He demanded to speak to the Doctor. I stated Dr. Cordova is currently in surgery, however I will let him know that you want an update and will request that he call you when he is able to. He voiced agreement with this and stated that he would remain calm, he just wants to do whatever he has to to take his home. Robby was escorted by the nursing molding supervisor, security, and myself into Claire's room. Robby remained calm during discharge instructions, and patient was escorted to his vehicle without difficulty or incident. I spoke extensively with patient before Robby's arrival to ensure that she felt safe going home. I asked if Robby is violent, She stated No, he knows better. I asked if she felt safe going home with him, she stated yes he just acts this way when he is concerned or worried. I will be ok. Elza NGUYEN also spoke with patient and similar answers were given. Dr. Cordova was alerted to entirety of situation as well.
== END 2023-11-06 17:41 | disposition home or self-care (01) ==
PROVIDERS: PCP Family Medicine; Visit Provider Student in an Organized Health Care Education/Training Program
PROC: (CPT 24685; principal; 2023-11-06 15:15)
DX: S52.022A Displaced fracture of olecranon process without intraarticular extension of left ulna, initial encounter for closed fracture (principal); K76.0 Fatty (change of) liver, not elsewhere classified; I10 Essential (primary) hypertension; K21.00 Gastro-esophageal reflux disease with esophagitis, without bleeding; W18.39XA Other fall on same level, initial encounter
CPT/HCPCS: 24685; C1889; 76000; 73070; J0690; J1100; J2250; J2371; J2405; J2704; J3010

== ENCOUNTER 2023-11-19 15:39 | Outpatient (CLI) | payer MEDICARE, SELFPAY ==
--- NOTE | 2023-11-19 14:45 | DI.RAD_ITS ---
Exam(s) XR ELBOW LT LIMITED EXAM: XR ELBOW LT LIMITED CLINICAL HISTORY: f/u fracture. TECHNIQUE: 2D digital imaging was performed. COMPARISON: CR XR ELBOW LT COMPLETE from 11/03/2023 CR XR ELBOW LT LIMITED from 11/06/2023 FINDINGS: Two views- Appearance of the recently placed hardware is unchanged from intra operative images of 11/06/2023. F racture fragments remain realigned. The posterior aspect of the plate is not flush with the posterio r cortex of the olecranon but this finding is unchanged from the operative study. No evidence of petey dware loosening nor osteomyelitis. IMPRESSION: As above. DATA REPOSITORY: RADIATION DOSE DELIVERED:
== END 2023-11-19 15:40 | disposition home or self-care (01) ==
LOC: DIORS 15:39
PROVIDERS: PCP Family Medicine; Referring Provider Family Medicine; Visit Provider Student in an Organized Health Care Education/Training Program
DX: S52.202A Unspecified fracture of shaft of left ulna, initial encounter for closed fracture (principal)
CPT/HCPCS: 73070

== ENCOUNTER 2023-12-17 15:36 | Outpatient (CLI) | payer MEDICARE, SELFPAY ==
--- NOTE | 2023-12-17 14:37 | DI.RAD_ITS ---
Exam(s) XR ELBOW LT LIMITED EXAM: XR ELBOW LT LIMITED CLINICAL HISTORY: F/U ORIF. TECHNIQUE: 2D digital imaging was performed. Two images were obtained. AP and lateral views were ob tained. COMPARISON: CR XR ELBOW LT COMPLETE from 11/03/2023 CR XR ELBOW LT LIMITED from 11/19/2023 FINDINGS: BONES: There are stable post operative changes present. There is again seen a sideplate and screws t ransfixing the proximal ulnar fracture. A portion of the fracture line still visualized anteriorly. No new fracture or dislocation. JOINTS: The joint spaces are well maintained. SOFT TISSUE: Normal. IMPRESSION: Stable postoperative changes. DATA REPOSITORY: RADIATION DOSE DELIVERED:
== END 2023-12-17 15:37 | disposition home or self-care (01) ==
LOC: DIORS 15:36
PROVIDERS: PCP Family Medicine; Referring Provider Family Medicine; Visit Provider Student in an Organized Health Care Education/Training Program
DX: S52.202D Unspecified fracture of shaft of left ulna, subsequent encounter for closed fracture with routine healing; X58.XXXD Exposure to other specified factors, subsequent encounter
CPT/HCPCS: 99024; 73070

== ENCOUNTER 2024-01-28 15:43 | Outpatient (CLI) | payer MEDICARE, SELFPAY ==
--- NOTE | 2024-01-28 13:58 | DI.RAD_ITS ---
Exam(s) XR ELBOW LT LIMITED EXAM: XR ELBOW LT LIMITED CLINICAL HISTORY: S/P ORIF L ELBOW. TECHNIQUE: 2D digital imaging was performed of the left elbow. Two images were obtained. AP and la teral views were obtained. COMPARISON: CR XR ELBOW LT COMPLETE from 11/03/2023 CR XR ELBOW LT LIMITED from 12/17/2023 FINDINGS: BONES: There is again seen a sideplate and screws transfixing a healed proximal left ulnar fracture. No new fractures identified. No bony destructive lesion is seen. JOINTS: The elbow is normally aligned. No joint effusion is seen. SOFT TISSUE: Normal. IMPRESSION: No acute abnormality. DATA REPOSITORY: RADIATION DOSE DELIVERED:
== END 2024-01-28 15:44 | disposition home or self-care (01) ==
LOC: DIORS 15:43
PROVIDERS: PCP Family Medicine; Visit Provider Physician Assistant
DX: S52.022D Displaced fracture of olecranon process without intraarticular extension of left ulna, subsequent encounter for closed fracture with routine healing; X58.XXXD Exposure to other specified factors, subsequent encounter
CPT/HCPCS: 99024; 73070

== ENCOUNTER 2024-04-01 02:17 | Outpatient (RCR) | payer MEDICARE, SELFPAY ==
[2024-04-01] MEDS: Denosumab 60 MG/ML SYR SC (13:16)
== END 2024-04-04 23:59 | disposition home or self-care (01) ==
LOC: INF 02:17
PROVIDERS: PCP Family Medicine; Visit Provider Family Medicine
DX: M81.0 Age-related osteoporosis without current pathological fracture (principal)
CPT/HCPCS: 96372; J0897

== ENCOUNTER 2024-07-08 02:14 | Outpatient (CLI) | payer MEDICARE, SELFPAY ==
[2024-07-08 14:10] LABS: ALT 35 U/L (14-59); AST 21 U/L (15-37); Albumin 3.8 g/dL (3.4-5.0); Alkaline Phosphatase 93 U/L (46-116); Anion Gap 7.2 mmol/L (3-11); BUN 11 mg/dL (7-18); Bilirubin, Total 0.6 mg/dL (0.2-1.0); CO2 27.8 mmol/L (21.0-32.0); CREATININE 0.5 mg/dL (0.55-1.02); Calcium 9.6 mg/dL (8.5-10.1); Chloride 104 mmol/L (98-107); Estimated GFR 100.84 (mL/min/1.73m2); Glucose 98 mg/dL (74-106); Potassium 3.8 mmol/L (3.5-5.1); Sodium 139 mmol/L (136-145); Total Protein 7.5 g/dL (6.4-8.2)
== END 2024-07-08 02:15 | disposition home or self-care (01) ==
LOC: LBO 02:14
PROVIDERS: PCP Family Medicine; Visit Provider Family Medicine
DX: I10 Essential (primary) hypertension (principal)
CPT/HCPCS: 36415; 80053

== ENCOUNTER 2024-08-14 01:16 | Outpatient (CLI) | payer MEDICARE, SELFPAY ==
--- NOTE | 2024-08-14 08:00 | DI.MAMMO_ITS ---
Exam(s) MAMMO SCREENING EXAM: MAMMO SCREENING CLINICAL HISTORY: screening,Z12.39. TECHNIQUE: Bilateral full field digital CC and MLO mammographic images were obtained with 3D tomosynthesis and utilizing computer aided detection (CAD). COMPARISON: Prior mammograms dating back to 2016 were reviewed. FINDINGS: There has been no significant change in the appearance and distribution of the fibroglandular tissue. There are no new significant findings in the immediate vicinity of the biopsy marker device in the upper-outer quadrant of the breast. Stable benign-appearing nodules again noted bilaterally. There are no new spiculated masses nor malignant appearing microcalcification groups. There is no significant architectural distortion nor skin thickening-retraction. IMPRESSION: No radiographic evidence of malignancy. BI-RADS Category 1 - Negative Breast Density - Category B - There are scattered areas of fibroglandular density. Breast density Category C or D implies that the patient has dense breast tissue. Dense breast tissue can make it harder to find cancer on a mammogram. Dense breast tissue is also associated with an increased risk of breast cancer. This information about the result of the mammogram report was provided to the patient to raise their awareness. Use this report when you speak with the patient about their risks for breast cancer, which includes their family history. At that time, you may recommend additional screening tests (Ultrasound or MRI) as these tests may add significant information. A negative radiographic report should not delay biopsy if a dominant or clinically suspicious mass is present. Up to ten percent of cancers are not identified on mammography. A negative report may reinforce clinical impression. Adenosis and dense breasts may obscure an underlying neoplasm. False positive reports average 6 to 10%. Patient will receive a letter notifying them of these results.
== END 2024-08-14 01:36 ==
LOC: DI 01:16
PROVIDERS: PCP Family Medicine; Visit Provider Family Medicine
DX: Z12.31 Encounter for screening mammogram for malignant neoplasm of breast (principal); R92.323 Mammographic fibroglandular density, bilateral breasts
CPT/HCPCS: 77063; 77067

== ENCOUNTER 2024-10-02 03:55 | Outpatient (RCR) | payer MEDICARE, SELFPAY ==
[2024-10-02] MEDS: Denosumab 60 MG/ML SYR SC (13:13)
== END 2024-10-05 23:59 | disposition home or self-care (01) ==
LOC: INF 03:55
PROVIDERS: PCP Family Medicine; Visit Provider Family Medicine
DX: M81.0 Age-related osteoporosis without current pathological fracture (principal)
CPT/HCPCS: 96372; J0897